=== PATIENT | female | born 1970 | race African-American/Black ===

== ENCOUNTER 2022-03-31 22:36 | Emergency (ER) | payer OTHER ==
[~2022-03-31] VITALS: Ht 180.3 cm; Wt 81.6 kg
--- NOTE | 2022-03-31 23:10 | NUR ---
BIBS FOR SIDED FACIAL "PULLING AND TIGHTNESS" SINCE 12PM. PATIENT IS [id number]. ABLE TO MAKE NEEDS KNOWN. PLACED COMFORTABLY IN BED. ATTACHED TO MONITOR. VITALS CHECKED.
[2022-03-31 23:52] LABS: BASOPHILS % (AUTO) 0.3 % (0.0-2.0); EOSINOPHILS % (AUTO) 1.7 % (0.0-6.0); HEMATOCRIT 39 % (33-45); HEMOGLOBIN 13.1 g/dL (11.5-14.8); LYMPHOCYTES # (AUTO) 1.7 K/uL (0.8-4.8); LYMPHOCYTES % (AUTO) 29.4 % (20.0-44.0); MEAN CORPUSCULAR HGB CONC 33 g/dl (31.0-36.0); MEAN CORPUSCULAR VOLUME 86 fL (82-100); MONOCYTES # (AUTO) 0.4 K/uL (0.1-1.30); MONOCYTES % (AUTO) 7.4 % (2.0-12.0); NEUTROPHILS # (AUTO) 3.6 K/uL (1.8-8.9); NEUTROPHILS % (AUTO) 61.2 % (43.0-81.0); PLATELET COUNT (AUTO) 367 K/uL (150-450); RED BLOOD CELL COUNT(AUTO) 4.61 MIL/uL (4.0-5.2); WHITE BLOOD COUNT (AUTO) 5.8 K/uL (4.3-11.0)
[2022-04-01 00:11] LABS: CALCIUM, SERUM 9.3 mg/dL (8.5-10.1); CREATININE 0.9 mg/dL (0.6-1.3); POTASSIUM 3.3 mmol/L (3.5-5.1)
[2022-04-01 00:37] VITALS: BP 152/91
== END 2022-04-01 00:37 | disposition home or self-care (01) ==
LOC: ER 22:38
DX: K11.20 Sialoadenitis, unspecified (principal); Z98.86 Personal history of breast implant removal; Z88.8 Allergy status to other drugs, medicaments and biological substances
CPT/HCPCS: 99285; 70491; 85025; 80048; 36415; J7050; Q9967